=== PATIENT | female | born 1965 ===

== ENCOUNTER 2019-02-14 05:40 | Day surgery (SDC) | payer OTHER ==
[~2019-02-14 05:40] MED LIST: CLONAZEPAM0.5 MG PO; NEURONTIN300 MG PO; SINGULAIR 10MG10 MG PO; SYNTHROID112 MCG PO; TYLENOL-CODEINE1 TA1 PO; ZOLOFT100 MG PO; [UNRECOGNIZED DRUG - OTHER] MC
== END 2019-02-14 15:05 | disposition home or self-care (01) ==
LOC: CIR.AMB 05:40
DX: M65.842 Other synovitis and tenosynovitis, left hand (principal)